=== PATIENT | male | born 1980 | race Caucasian/White ===

== ENCOUNTER → 2022-10-02 07:36 | Outpatient (BNVA) | payer SELFPAY | PROVIDERS: Visit Provider Physician Assistant ==

== ENCOUNTER 2022-11-03 21:31 | Emergency (ER) | payer OTHER, SELFPAY ==
--- NOTE | ~2022-11-03 | XR_ITS ---
EXAMINATION: XR ELBOW, LEFT CLINICAL INFORMATION: Left elbow pain. COMPARISON: None available. TECHNIQUE: AP, lateral, and oblique views of the left elbow. FINDINGS: No fracture or joint effusion. Alignment is anatomic. Joint spaces are maintained. No soft tissue calcifications. Mild soft tissue swelling at the antecubital fossa. XR/XR elbow LT min 3V IMPRESSION: Mild soft tissue swelling at the antecubital fossa. No acute osseous findings.
[2022-11-03 21:46] VITALS: BP 143/84; PULSE 105; RESP 18; TEMP 37.1; O2SAT 96; BMI 30.7
[2022-11-03] MEDS: Acetaminophen 325 MG TABLET 975 MG PO (23:03)
--- NOTE | 2022-11-03 23:04 | PC.NURSE ---
pt medicated for left am pain call pacheco within reach
[2022-11-03 23:58] VITALS: BP 102/53; PULSE 85; RESP 16; TEMP 36.9; O2SAT 95
--- NOTE | 2022-11-04 00:16 | ED.EXTPRO ---
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 heard a pop in the left elbow bleeding or pain at the medial aspect of elbow with swelling increases on flexion of the left elbow no other injury Related Data Previous Rx's Medication Instructions Recorded ibuprofen 600 mg tablet 600 mg PO Q6H PRN fever or pain 11/04/22 #30 tabs Allergies Allergy/AdvReac Type Severity Reaction Status Date / Time Penicillins Allergy Rash Verified 11/03/22 21:46 Review of Systems Review of Systems: Yes all other systems are reviewed and are negative PMFSH Social History Social History Advance Directives: No Advance Directives Information Provided: No Physical Exam Vital Signs: Vital Signs: Last Vital Signs Temp 98.4 F 11/03/22 23:58 Pulse 85 11/03/22 23:58 Resp 16 11/03/22 23:58 BP 102/53 L 11/03/22 23:58 Pulse Ox 95 11/03/22 23:58 O2 Del Method Room Air 11/03/22 23:58 BMI result Body Mass Index 30.7 Extrem: Shoulder/upper arm images: 1. Tenderness at the radial tuberosity increases on pronation with soft tissue swelling negative hook sign and biceps squeeze test Medications Administered Discontinued Medications Generic Name Dose Route Start Last Admin Trade Name Freq PRN Reason Stop Dose Admin Acetaminophen 975 mg 11/03/22 22:59 11/03/22 23:03 Acetaminophen 325 Mg Tablet PO 11/03/22 23:00 975 mg ONCE ONE Administration Ibuprofen 600 mg 11/04/22 00:20 11/04/22 00:40 Ibuprofen 600 Mg Tablet PO 11/04/22 00:21 Not Given ONCE ONE Medical Decision Making Medical Decision Making [facility] Narrative: Patient clinically with left partial distal biceps tendon rupture sling was given to the patient will see Dr. Hdz in a.m. x-ray negative for acute fracture Discharge Plan Discharge Clinical Impression: Rupture of distal biceps tendon Patient Disposition: Home, Self-Care Instructions: Tendon Rupture (ED) Additional Instructions: Wear the sling Rest to the left arm Ibuprofen for pain Follow-up with orthopedic for further management for biceps tendon rupture Prescriptions: New ibuprofen 600 mg tablet 600 mg PO Q6H PRN (Reason: fever or pain) Qty: 30 0RF Referrals: Tomy Hdz MD [Physician] - 2 days Stand Alone Forms: Work/School Release Interventions: ED Discharge Assessment Last Done: 11/04/22 00:44 Discharge Date/Time: 11/04/22 00:45
--- NOTE | 2022-11-04 00:44 | PC.NURSE ---
process control tech at bedside for sling. 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
== END 2022-11-04 00:45 | disposition home or self-care (01) ==
PROVIDERS: Emergency Provider Internal Medicine; PCP Physician Assistant
DX: S46.212A Strain of muscle, fascia and tendon of other parts of biceps, left arm, initial encounter (principal); M25.522 Pain in left elbow; X58.XXXA Exposure to other specified factors, initial encounter; Y93.9 Activity, unspecified; Y92.9 Unspecified place or not applicable; Y99.0 Civilian activity done for income or pay
CPT/HCPCS: 73080; 99283

== ENCOUNTER 2022-11-04 15:02 | Outpatient (AMB) | payer OTHER, SELFPAY ==
[2022-11-04 15:07] VITALS: BMI 30.7
--- NOTE | 2022-11-04 15:07 | MHC.OFFVIS ---
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 Patient reports he was pulling the hose suddenly he heard a pop in the left elbow. He states having numbness and a burning sensation on the bicep and it moves down his arm. 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 He had pain was unable to continue. He presents today with continued pain and knee antecubital fossa of the left arm. He comes in wearing a sling. He is right-hand dominant. 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 Review of Systems Const All systems reviewed & are unremarkable except as noted in HPI and below Physical Exam Vital Signs: BMI result Body Mass Index 30.7 Const General: cooperative, healthy appearing, no acute distress and well groomed Orientation/consciousness: oriented to person and oriented to place HEENT Head: Yes normal to inspection, Yes normocephalic and Yes atraumatic Eyes General: appearance normal, both eyes and all related structures Alignment and Position: alignment normal Conjunctivae: conjunctivae normal EOM: EOMs intact bilaterally Neck Neck: Yes normal visual inspection and Yes trachea midline Resp Other: No rerpiratory distress Effort & Inspection: normal respiratory effort and able to speak in complete sentences Cardio Other: Palpable radial pulse with no appreciable rythmic abnormalities GI Other: No abdominal distension Back/Spine/Pelvis Cervical Spine: normal cervical lordosis and cervical ROM normal Skin General skin exam: no rashes or lesions noted Neuro General: oriented to person, oriented to place and gait normal Extrem Other: Left arm with a positive hook test and biceps retraction. 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 I recommend operative fixation. I discussed the risks benefits and alternatives including but not limited to the risk of pain, infection, stiffness, need for further surgery as well as potential medical complications. He expressed understanding and we will proceed forward accordingly. Coding Level of Care Code New Pt Level 4 (11012) Diagnoses Rupture of left distal biceps tendon S46.212A
== END 2022-11-04 15:29 | disposition home or self-care (01) ==
PROVIDERS: PCP Physician Assistant; Visit Provider Orthopaedic Surgery
DX: S46.212A Strain of muscle, fascia and tendon of other parts of biceps, left arm, initial encounter (principal)
CPT/HCPCS: 99204

== ENCOUNTER → 2022-11-04 15:02 | Outpatient (BNVA) | payer OTHER, SELFPAY | PROVIDERS: PCP Physician Assistant; Visit Provider Orthopaedic Surgery ==

== ENCOUNTER 2022-11-08 09:58 | Day surgery (SDC) | payer OTHER, SELFPAY ==
--- NOTE | 2022-11-07 09:17 | HO.ANESPROP2 ---
Documented by User: Veronica Parker NP 11/07/22 09:18 HPI - Anesthesia Eval Consult details Narrative: 42yo M for Left Bicep Tendon Repair - Distal PMFSH Active Problems Active Problems: All Active Problems (Updated 11/05/22 @ 07:30 by Tomy Hdz MD) Rupture of left distal biceps tendon (Acute) Past Medical History Medical History (Updated 11/08/22 @ 10:12 by Lu Goode) HTN (hypertension) Surgical History Surgical History (Updated 11/08/22 @ 10:07 by Lu Goode) History of placement of ear tubes H/O foot surgery H/O shoulder surgery Social History Social History (Updated 11/04/22 @ 15:13 by Pat Azevedo) Patient Tobacco Use Status: Never used Tobacco 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 Meds Allergies Allergy/AdvReac Type Severity Reaction Status Date / Time Penicillins Allergy Unknown Rash Verified 11/08/22 10:05 Home Medications Medication Instructions Recorded Confirmed Last Taken Type lisinopril 5 mg tablet 5 mg PO DAILY 11/04/22 11/08/22 11/08/22 History Exam Exam Date and Time: November 07, [id number] Assessment and Plan Assessment Anesthesia Assessment: Chart Reviewed Documented by User: Cosmo Gan MD 11/10/22 20:41 PMFSH Past Medical History Medical History (Updated 11/08/22 @ 10:12 by Lu Goode) HTN (hypertension) Family History Family history of problems with anesthesia: No Surgical History Surgical History (Updated 11/08/22 @ 10:07 by Lu Goode) History of placement of ear tubes H/O foot surgery H/O shoulder surgery History of Problems with Anesthesia: No Social History Social History (Updated 11/04/22 @ 15:13 by Pat Azevedo) Patient Tobacco Use Status: Never used Tobacco 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 Meds Allergies Allergy/AdvReac Type Severity Reaction Status Date / Time Penicillins Allergy Unknown Rash Verified 11/08/22 10:05 Home Medications Medication Instructions Recorded Confirmed Last Taken Type lisinopril 5 mg tablet 5 mg PO DAILY 11/04/22 11/08/22 11/08/22 History Exam Airway Mallampati Class: III Neck ROM: Full Loose/Missing/Broken Teeth: Yes Assessment and Plan Assessment Anesthesia Assessment: Anesthesia Plan Discussed Final Anesthetic Review Family History of Problems with Anesthesia: No History of Problems with Anesthesia: No NPO: Yes ASA Class: II Final Preanesthetic Review: Meds/Allgs Chart Reviewed, Consent Obtained/Reviewed and Anes Risks/Benef Reviewed Patient Risk: Intermediate Procedure Risk: Intermediate Anesthetic Plan Anesthetic Plan: GA, Regional Block and Agree w/ Assess. and Plan Disposition: Standard PACU
[2022-11-08] VITALS (11 sets, daily range): BP systolic 110–143; BP diastolic 60–90; PULSE 76–87; RESP 15–17; TEMP 36.2–36.7; O2SAT 92–97; BMI 30.6
--- NOTE | ~2022-11-08 | FL_ITS ---
EXAMINATION: XR FLUOROSCOPY WITH IMAGES CLINICAL INFORMATION: Distal biceps repair, left. COMPARISON: None available. TECHNIQUE: Fluoroscopy Supervised By: Dr. Tomy Hdz. Fluoroscopy Time: 16.28 seconds. Cumulative Dose: 0.5165 mGy. DAP: 0.0312 Gycm2. Images: 2. FINDINGS: Images demonstrate a button or anchor projecting over the proximal radial shaft/radial tuberosity for biceps tendon repair. FL/FL guidance in OR IMPRESSION: Fluoroscopy guidance for biceps tendon repair.
[2022-11-08] MEDS: Lactated Ringers 1,000 ML 100 ML IVCONT (10:56)
--- NOTE | 2022-11-08 13:09 | PM.OP ---
Brief Operative Note Date of Service: 11/08/22 Pre-op diagnosis: Left distal biceps rupture Post-op diagnosis: same Procedure: Left distal bicep repair Implants: Arthrex suture button and 7x 10 mm interference screw Surgeon: Tomy Hdz MD Anesthesia: GETA and regional Was an Ammonia Refrigeration Technician used for this Procedure?: No Estimated blood loss (mL): 10 Tourniquet time (min): 37 IV fluids (mL): 750 Pathology: none sent Condition: stable Disposition: PACU
[2022-11-08] MEDS: oxyCODONE HCl Immed Release 5 MG TABLET PO (13:15)
--- NOTE | 2022-11-12 10:14 | W.PM.OPN ---
Operative Note Operative Note Date of Service: 11/08/22 Narrative: Date of Service: 11/08/22 Pre-op diagnosis: Left distal biceps rupture Post-op diagnosis: same Procedure: Left distal bicep repair Implants: Arthrex suture button and 7x 10 mm interference screw Surgeon: Tomy Hdz MD Anesthesia: GETA and regional Was an Color Finisher used for this Procedure?: No Estimated blood loss (mL): 10 Tourniquet time (min): 37 IV fluids (mL): 750 Pathology: none sent Condition: stable Disposition: PACU Patient was brought to the operating room and placed supine on the surgical table. He was prepped and draped in standard sterile fashion and a time out was called to identify proper site, proper procedure and IV antibiotics per weight were administered. The tourniquet was insufflated to 250 mm Hg I began by localizing the radial tuberosity. I then made a standard transverse incision at this level and bluntly dissected down. The biceps sheath was easily encountered retracted into the arm. This was identified and clamped and brought out to length. I cleaned that tendon up and whipstitched and standard locking Krackow fashion with FiberWire from the Arthrex distal biceps tendon repair kit. I then bluntly dissected down to the radial tuberosity. A Beef pin was drilled at the site of attachment bicortically. This was confirmed with fluoro. I then over reamed with a 7 mm Reamer through the 1st cortex only. I then attached the suture button and dunked this through the 2nd cortex and pulled the biceps tendon into the attachment site. I then placed the 7 mm interference screw and tied the FiberWire over this. I took the elbow through range of motion and was satisfied with the position of the repair and the stability of the repair. He had full range of motion with full supination and pronation. Final fluoro confirmed the button on the dorsal cortex. the tourniquet was let down. There was no brisk bleeding. A layered closure was performed with absorbable suture skin glue and Steri-Strips. Patient was placed into a sterile dressing and a simple sling. He was extubated and brought to the recovery room in stable condition. There were no known complications. He will initiate range of motion in the next 5-7 days with no resistance for 6 weeks.
== END 2022-11-08 15:45 | disposition home or self-care (01) ==
PROVIDERS: PCP Physician Assistant; Visit Provider Orthopaedic Surgery
PROC: (CPT 24341; principal; 2022-11-08 11:30)
DX: S46.212A Strain of muscle, fascia and tendon of other parts of biceps, left arm, initial encounter (principal); X50.0XXA Overexertion from strenuous movement or load, initial encounter; Y92.69 Other specified industrial and construction area as the place of occurrence of the external cause; Y93.89 Activity, other specified; Y99.0 Civilian activity done for income or pay; Y99.8 Other external cause status; I10 Essential (primary) hypertension; Z88.0 Allergy status to penicillin; Z79.899 Other long term (current) drug therapy
CPT/HCPCS: 24341; C1713; J0131; J0690; J1170; J2250; J2550; J2795; J3010

== ENCOUNTER → 2022-11-08 09:58 | Outpatient (BNV) | payer OTHER, SELFPAY | PROVIDERS: PCP Physician Assistant; Visit Provider Orthopaedic Surgery | DX: S46.211A Strain of muscle, fascia and tendon of other parts of biceps, right arm, initial encounter (principal) | CPT/HCPCS: 24342 ==

== ENCOUNTER 2022-11-15 10:25 | Outpatient (AMB) | payer OTHER, SELFPAY ==
--- NOTE | 2022-11-15 10:34 | MHC.OFFVIS ---
Intake Vital Signs 11/15/22 10:37 Height 5 ft 11 in Weight 219 lb BMI 30.5 Intake Visit Reasons: PO LT Distal Bic.Ten repair 11/08/22NE/Confirmed Intake Note: Efrain 42 yr ld male presents today for his P/O visit for left distal bicep tendon repair from 11/08/22. States he has is doing well and has tolerable pain. Allergies Penicillins Allergy (Unknown, Verified 11/15/22 10:36) Rash HPI PO LT Distal Bic.Ten repair 11/08/22NE/Confirmed HPI Details 42-year-old male who presents in the office today 1 week status post left distal bicep repair, which was performed on 11/08/[address] Hdz. The patient reports he is doing well with tolerable pain. 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 No signs of infection. No surrounding erythema or drainage. Able to reach full extension and flexion. Able to slightly pronate and supinate with discomfort. NVI. Assessment & Plan Assessment & Plan (1) Rupture of left distal biceps tendon: Comment: Left distal bicep repair, 11/08/2022 Dr. Tomy Hdz Code(s): S46.212A - Strain of muscle, fascia and tendon of other parts of biceps, left arm, initial encounter Qualifiers: Encounter type: subsequent encounter Qualified Code(s): S46.212D - Strain of muscle, fascia and tendon of other parts of biceps, left arm, subsequent encounter Plan Mr. Donald is a 42-year-old male who presents in the office today 1 week status post left distal bicep repair, which was performed on 11/08/[address] Hdz. The patient reports he is doing well with tolerable pain. 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 The patient will be referred for out patient physical therapy. He will continue with no lifting, pushing, or pulling of the left upper extremity. Out of work until f/u. Follow up will be in 4 weeks, or sooner if needed. Orders: Orders PT Evaluation and Treatment Today S46.212A - Strain of muscle, fascia and tendon of other parts of biceps, left arm, initial encounter Patient Instructions: Scribed for Madalyn Cooper PA-C by Daisha Salcedo medical diagnostic radiographer, on 11/15/2022 at 10:28 am, EST. Coding Level of Care Code Global (34085) Diagnoses Rupture of left distal biceps tendon, subsequent encounter S46.212D Encounter type: subsequent encounter
[2022-11-15 10:37] VITALS: BMI 30.5
== END 2022-11-15 10:55 | disposition home or self-care (01) ==
PROVIDERS: PCP Physician Assistant; Visit Provider Physician Assistant
DX: S46.212D Strain of muscle, fascia and tendon of other parts of biceps, left arm, subsequent encounter (principal)
CPT/HCPCS: 99024

== ENCOUNTER → 2022-11-15 10:25 | Outpatient (BNVA) | payer OTHER, SELFPAY | PROVIDERS: PCP Physician Assistant; Visit Provider Physician Assistant ==

== ENCOUNTER 2022-12-13 11:17 | Outpatient (AMB) | payer OTHER, SELFPAY ==
--- NOTE | 2022-12-13 11:25 | MHC.OFFVIS ---
Intake Vital Signs 12/13/22 11:29 Handedness Right Intake Visit Reasons: PO LT Distal Bic.Ten repair 11/08/22NE Intake Note: Efrain is a 42 year old right hand dominant male who presents today in a sling for his P/O visit for left distal bicep tendon repair 11/08/22 NE. Patient states he is doing well, some achenes here and there. He reports that PT is going well and is showing some improvements. Allergies Penicillins Allergy (Unknown, Verified 11/15/22 10:36) Rash HPI PO LT Distal Bic.Ten repair 11/08/22NE HPI Details 42-year-old right hand dominant male who presents in the office today 1 month status post left distal bicep repair, which was performed on 11/08/[address] Hdz. The patient reports he is doing well with some achiness intermittently. He confirms participating in physical therapy and states it is going well. He confirms improvement in the left shoulder. 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 Surgical incision is well approximated and healing. No signs of infection. NVI. Assessment & Plan Assessment & Plan (1) Rupture of left distal biceps tendon: Comment: Left distal bicep repair, 11/08/2022 Dr. Tomy Hdz Code(s): S46.212A - Strain of muscle, fascia and tendon of other parts of biceps, left arm, initial encounter Qualifiers: Encounter type: subsequent encounter Qualified Code(s): S46.212D - Strain of muscle, fascia and tendon of other parts of biceps, left arm, subsequent encounter Plan Mr. Donald is a 42-year-old right hand dominant male who presents in the office today 1 month status post left distal bicep repair, which was performed on 11/08/[address] Hdz. The patient reports he is doing well with some achiness intermittently. He confirms participating in physical therapy and states it is going well. He confirms improvement in the left shoulder. The patient will continue to work with physical therapy. He has not been seen by Dr. Hdz since surgery therefore his follow up will be with him. He will remain out of work until follow up. Follow up in [address] Hdz, or sooner if needed. Patient Instructions: Scribed for Madalyn Cooper PA-C by Daisha Salcedo medical administrative technician, on 12/13/2022 at 11:19 am, EST. Coding Level of Care Code Global (91705) Diagnoses Rupture of left distal biceps tendon, subsequent encounter S46.212D Encounter type: subsequent encounter
== END 2022-12-13 12:01 | disposition home or self-care (01) ==
PROVIDERS: PCP Physician Assistant; Visit Provider Physician Assistant
DX: S46.212D Strain of muscle, fascia and tendon of other parts of biceps, left arm, subsequent encounter (principal)
CPT/HCPCS: 99024

== ENCOUNTER → 2022-12-13 11:17 | Outpatient (BNVA) | payer OTHER, SELFPAY | PROVIDERS: PCP Physician Assistant; Visit Provider Physician Assistant ==

== ENCOUNTER 2023-01-24 09:29 | Outpatient (AMB) | payer OTHER, SELFPAY ==
--- NOTE | 2023-01-24 09:31 | A.OFFVIS_ITS ---
Intake Vital Signs 01/24/23 09:34 Height 5 ft 11 in Weight 219 lb BMI 30.5 Intake Visit Reasons: PO LT Distal Bic.Ten repair 11/08/22NE Intake Note: Efrain is a 42 year old right hand dominant male who presents today for a post operative visit s/p left distal bicep tendon repair 11/08/22 NE. Patient remains out of work at this time. Patient reports that he is doing well, he is working with PT and it is going well. 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 Allergies Penicillins Allergy (Unknown, Verified 11/15/22 10:36) Rash HPI PO LT Distal Bic.Ten repair 11/08/22NE HPI Details Efrain is a 42 year old man who presents ~10 weeks S/P left distal biceps tendon repair.. He says he is doing well and denies any pain. He has been attending PT, which he finds helpful. He would like to discuss work restrictions. 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 Review of Systems Const All systems reviewed & are unremarkable except as noted in HPI and below Physical Exam Vital Signs: BMI result Body Mass Index 30.5 Const General: no acute distress, alert and awake Orientation/consciousness: patient oriented x3 HEENT Head: Yes normocephalic and Yes atraumatic Eyes EOM: EOMs intact bilaterally Resp Effort & Inspection: normal respiratory effort and able to speak in complete sentences Cardio Jugular venous distension: no JVD Skin General skin exam: turgor normal Rashes: no rashes Neuro General: patient oriented x3 Extrem Other: Left Arm: Well-healed inc full rom 5/5 with resisted supination Psych Appearance: grossly normal Affect: normal affect Attitude: cooperative Assessment & Plan Assessment & Plan (1) Rupture of left distal biceps tendon: Comment: Left distal bicep repair, 11/08/2022 Dr. Tomy Hdz Code(s): S46.212A - Strain of muscle, fascia and tendon of other parts of biceps, left arm, initial encounter Qualifiers: Encounter type: subsequent encounter Qualified Code(s): S46.212D - Strain of muscle, fascia and tendon of other parts of biceps, left arm, subsequent encounter Plan: This is a 42 year old man S/P left distal biceps tendon repair, DOS: 11/08/22. He is doing well, within expectation, and denies any pain. He continues to work with PT on his function & ROM, and is concerned about returning to work as a contribution solicitor as they do not have light duty for him. No work. May begin PT with progressive strengthening. f/u 6 weeks Orders: Orders PT Evaluation and Treatment Today S46.212A - Strain of muscle, fascia and tendon of other parts of biceps, left arm, initial encounter Coding Level of Care Code Global (59117) Diagnoses Rupture of left distal biceps tendon, subsequent encounter S46.212D Encounter type: subsequent encounter
[2023-01-24 09:34] VITALS: BMI 30.5
== END 2023-01-24 09:52 | disposition home or self-care (01) ==
PROVIDERS: PCP Physician Assistant; Visit Provider Orthopaedic Surgery
DX: S46.212D Strain of muscle, fascia and tendon of other parts of biceps, left arm, subsequent encounter (principal)
CPT/HCPCS: 99024

== ENCOUNTER → 2023-01-24 09:29 | Outpatient (BNVA) | payer OTHER, SELFPAY | PROVIDERS: PCP Physician Assistant; Visit Provider Orthopaedic Surgery | DX: S46.212D Strain of muscle, fascia and tendon of other parts of biceps, left arm, subsequent encounter (principal) | CPT/HCPCS: 99212 ==

== ENCOUNTER 2023-03-07 10:56 | Outpatient (AMB) | payer OTHER, SELFPAY ==
--- NOTE | 2023-03-07 11:04 | A.OFFVIS_ITS ---
Intake Vital Signs 03/07/23 11:09 Height 5 ft 11 in Weight 219 lb BMI 30.5 Intake Visit Reasons: OV-LT Distal Bic.Ten repair 11/08/22NE Intake Note: Efrain a 42 year old right hand dominant male presents today for a post operative visit s/p left distal bicep tendon repair 11/08/22 NE. Patient reports that he is doing well, however today while working with PT he felt an increase in pain/discomfort. Allergies Penicillins Allergy (Unknown, Verified 03/07/23 11:09) Rash HPI OV-LT Distal Bic.Ten repair 11/08/22NE HPI Details Efrain is a 42 year old man who presents ~4 months S/P left distal biceps tendon repair. He says he is doing well and continues to attend PT, which he finds helpful, but he has noticed an increase in pain michelle. after last few PT sessions in which he has been working against resistance. 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 Review of Systems Const All systems reviewed & are unremarkable except as noted in HPI and below Physical Exam Vital Signs: BMI result Body Mass Index 30.5 Const General: no acute distress, alert and awake Orientation/consciousness: patient oriented x3 HEENT Head: Yes normocephalic and Yes atraumatic Eyes EOM: EOMs intact bilaterally Resp Effort & Inspection: normal respiratory effort and able to speak in complete sentences Cardio Jugular venous distension: no JVD Skin General skin exam: turgor normal Rashes: no rashes Neuro General: patient oriented x3 Extrem Other: full rom left elbow biceps palpable Discomfort with deep palpation and with resisted supination Psych Appearance: grossly normal Affect: normal affect Attitude: cooperative Assessment & Plan Assessment & Plan (1) Rupture of left distal biceps tendon: Comment: Left distal bicep repair, 11/08/2022 Dr. 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 f/u 8 weeks at which time he will hopefully feel that he is able to rtw. Plan Scribed for Tomy Hdz MD by Kelvin Crane, medical social consultant, on 03/07/23 at 11:10 AM, EST. Coding Level of Care Code Est Pt Level 3 (79242) Diagnoses Rupture of left distal biceps tendon, subsequent encounter S46.212D Encounter type: subsequent encounter
[2023-03-07 11:09] VITALS: BMI 30.5
== END 2023-03-07 11:36 | disposition home or self-care (01) ==
PROVIDERS: PCP Physician Assistant; Visit Provider Orthopaedic Surgery
DX: S46.212D Strain of muscle, fascia and tendon of other parts of biceps, left arm, subsequent encounter (principal)
CPT/HCPCS: 99213

== ENCOUNTER → 2023-03-07 10:56 | Outpatient (BNVA) | payer OTHER, SELFPAY | PROVIDERS: PCP Physician Assistant; Visit Provider Orthopaedic Surgery | DX: S46.212D Strain of muscle, fascia and tendon of other parts of biceps, left arm, subsequent encounter (principal) | CPT/HCPCS: 99212 ==

== ENCOUNTER 2023-03-28 10:29 | Outpatient (AMB) | payer OTHER, SELFPAY ==
--- NOTE | 2023-03-28 10:26 | A.OFFVIS_ITS ---
Intake Intake Visit Reasons: OV-LT Distal Bic.Ten repair 11/08/22NE Intake Note: Efrain a 42 year old right hand dominant male presents today for a post operative visit s/p left distal bicep tendon repair 11/08/22 NE. 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 Patient reports that he is doing well. Allergies Penicillins Allergy (Unknown, Verified 03/28/23 10:26) Rash HPI OV-LT Distal Bic.Ten repair 11/08/22NE HPI Details Efrain is a 42 year old man who presents ~5 months S/P left distal biceps tendon repair. He says he is doing well and continues to attend PT, which he finds helpful, but he has noticed an increase in pain michelle. after working against resistance. 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 Review of Systems Const All systems reviewed & are unremarkable except as noted in HPI and below Physical Exam Const General: no acute distress, alert and awake Orientation/consciousness: patient oriented x3 HEENT Head: Yes normocephalic and Yes atraumatic Eyes EOM: EOMs intact bilaterally Resp Effort & Inspection: normal respiratory effort and able to speak in complete sentences Cardio Jugular venous distension: no JVD Skin General skin exam: turgor normal Rashes: no rashes Neuro General: patient oriented x3 Extrem Other: Left distal biceps inc c/d/i Intact biceps at insertion Mild pain over lateral forearm. Hard to reproduce. Psych Appearance: grossly normal Affect: normal affect Attitude: cooperative Assessment & Plan Assessment & Plan (1) Rupture of left distal biceps tendon: Comment: Left distal bicep repair, 11/08/2022 Dr. Tomy Hdz Code(s): S46.212A - Strain of muscle, fascia and tendon of other parts of biceps, left arm, initial encounter Qualifiers: Encounter type: subsequent encounter Qualified Code(s): S46.212D - Strain of muscle, fascia and tendon of other parts of biceps, left arm, subsequent encounter Plan: 4 1/2 months s/p left biceps repair. Still some concerns with pain after resistance activities. May progress strengthenoing as tolerated. Continue current work restrictions. f/u 4 weeks Plan Prepared for Tomy Hdz MD by Kelvin Crane, medical administrative technician, on 03/28/23 at 10:32 AM, EST. Coding Level of Care Code Est Pt Level 3 (41832) Diagnoses Rupture of left distal biceps tendon, subsequent encounter S46.212D Encounter type: subsequent encounter
== END 2023-03-28 10:53 | disposition home or self-care (01) ==
PROVIDERS: PCP Physician Assistant; Visit Provider Orthopaedic Surgery
DX: S46.212D Strain of muscle, fascia and tendon of other parts of biceps, left arm, subsequent encounter (principal); Z04.2 Encounter for examination and observation following work accident
CPT/HCPCS: 99213

== ENCOUNTER → 2023-03-28 10:29 | Outpatient (BNVA) | payer OTHER, SELFPAY | PROVIDERS: PCP Physician Assistant; Visit Provider Orthopaedic Surgery | DX: S46.212D Strain of muscle, fascia and tendon of other parts of biceps, left arm, subsequent encounter (principal) | CPT/HCPCS: 99212 ==

== ENCOUNTER 2023-04-28 09:28 | Outpatient (AMB) | payer OTHER, SELFPAY ==
[2023-04-28 09:29] VITALS: BMI 30.5
--- NOTE | 2023-04-28 09:29 | MHC.OFFVIS ---
Intake Vital Signs 04/28/23 09:29 Height 5 ft 11 in Weight 219 lb BMI 30.5 Intake Visit Reasons: OV-LT Distal Bic.Ten repair 11/08/22NE Intake Note: Efrain a 42 year old right hand dominant male presents today for a post operative visit s/p left distal bicep tendon repair 11/08/22 NE. 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 Patient reports that he has no concerns at this time, he is ready to get back to work Allergies Penicillins Allergy (Unknown, Verified 03/28/23 10:26) Rash HPI OV-LT Distal Bic.Ten repair 11/08/22NE HPI Details Efrain is a 42 year old man who presents ~5 1/2 months S/P left distal biceps tendon repair. He says he is doing well and continues to attend PT, which he finds helpful, and has started to work on increasing his strength. 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 He would like to discuss his work restrictions & RTW status. He feels he is able to return to full duty. 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 Resp Other: No audible wheezing Effort & Inspection: normal respiratory effort and able to speak in complete sentences Cardio Other: Radial pulse palpable with no rythmic abnormalities Jugular venous distension: no JVD Back/Spine/Pelvis Cervical Spine: normal cervical lordosis Skin General skin exam: turgor normal Rashes: no rashes Neuro General: patient oriented x3 Extrem Other: FUll ROM No pain with resisted supination Well-healed incision Psych Appearance: grossly normal Mental Status: mental status grossly normal Speech and movement: Normal speech and movement present Affect: normal affect Attitude: cooperative Assessment & Plan Assessment & Plan (1) Rupture of left distal biceps tendon: Comment: Left distal bicep repair, 11/08/2022 Dr. Tomy Hdz Code(s): S46.212A - Strain of muscle, fascia and tendon of other parts of biceps, left arm, initial encounter Qualifiers: Encounter type: subsequent encounter Qualified Code(s): S46.212D - Strain of muscle, fascia and tendon of other parts of biceps, left arm, subsequent encounter Plan: Efrain is doing very well. He has a teacher kindergarten and slightly concerned about returning to full duty as he has not tested his arm yet. I recommend he return to PT and he may engage in activity as tolerated without restrictions. There is no evidence of problem and he is healed this well. I anticipate a return to work without restriction in 2 weeks. Plan Prepared for Tomy Hdz MD by Kelvin Crane, medical laboratory manager, on 04/28/23 at 9:34 AM, EST. Coding Level of Care Code Est Pt Level 3 (87978) Diagnoses Rupture of left distal biceps tendon, subsequent encounter S46.212D Encounter type: subsequent encounter
== END 2023-04-28 10:00 | disposition home or self-care (01) ==
PROVIDERS: PCP Physician Assistant; Visit Provider Orthopaedic Surgery
DX: S46.212D Strain of muscle, fascia and tendon of other parts of biceps, left arm, subsequent encounter (principal)
CPT/HCPCS: 99213

== ENCOUNTER → 2023-04-28 09:28 | Outpatient (BNVA) | payer OTHER, SELFPAY | PROVIDERS: PCP Physician Assistant; Visit Provider Orthopaedic Surgery | DX: S46.212D Strain of muscle, fascia and tendon of other parts of biceps, left arm, subsequent encounter (principal) | CPT/HCPCS: 99212 ==

== ENCOUNTER 2023-04-28 10:00 | Outpatient (RCR) | payer OTHER, SELFPAY ==
[2022-11-28 10:05] VITALS: BP 115/64; PULSE 82
--- NOTE | 2022-11-28 11:02 | MHC.PT.EP ---
[facility] [place] Office [place] Office [place] Office [address] Gonzalo Peraza [address] [facility] [phone] F: [phone] F: [phone] F: [phone] F: [phone] Physical Therapy Plan of Care Date of Evaluation: 11/28/22 Date of Surgery: 11/08/22 Diagnosis: Strain of muscle, fascia and tendon of other parts of biceps, L arm, initial encounter Rupture of L distal bicep tendon s/p L bicep repair Assessment: Efrain is a 42 year old male who is referred to PT for Strain of muscle, fascia and tendon of other parts of biceps, L arm, initial encounter, Rupture of L distal bicep tendon . He is 20 days post op. He injured his bicep at work while pulling a fire hose. On PT examination he presented with TTP over bicep belly, medial aspect of arm, distal bicep tendon, decreased R shoulder ROM, decreased L elbow ROM and strength, and altered posture. 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 He lives with his family. He is independent with self care activities but his does all IADLS. He also helps his care for 3 young children. He enjoys playing basket ball, soft ball and going to the gym. He would benefit from skilled PT to address the aforementioned impairments and improve tolerance to functional activities. Frequency and Duration: The patient will be seen 2/week for 14 weeks Short Term Goals: 1. Pt will have 50% decrease in pain which will enable him to sleep through the night in 2 weeks 2. Pt will demonstrate protocol appropriate elbow ROM in 4 weeks. Locomotive Switch Operator Goals: 1. Pt will demonstrate an increase in bicep strength by 1 grade which will enable him to use his L UE for cleaning, cooking grocery without pain in 8 weeks. 2. Pt will be able to move his elbow through all planes of motion and have strength WNL which will enable him to return to playing basket ball, soft ball and exercising in the gym in 11 weeks. 3. Pt will return to PLOF and full duty work activities in 14 weeks. Treatment Plan: Modalities to reduce pain, spasms and effusion. Manual therapy to restore motion and function. Therapeutic exercise to improve strength and flexibility. Neuromuscular re-education for posture and balance. Therapeutic activities to return to functional activities of daily living. Electronically signed by: Kylee Figueredo PT DPT Please sign and return to therapist. Thank you for your referral.
--- NOTE | 2023-05-15 11:26 | MHC.PT.DC ---
[facility] [place] Office [place] Office [place] Office [address] Gonzalo Peraza [address] [phone] F: [phone] F: [phone] F: [phone] F: [phone] Physical Therapy Discharge Report Diagnosis: Strain of muscle, fascia and tendon of other parts of biceps, L arm, initial encounter Rupture of L distal bicep tendon s/p L bicep repair Date of Surgery: 11/08/22 Date of Evaluation: 11/28/22 Date of Discharge: 05/15/23 Treatments to Date: 26 Cancellations to Date: 1 No Shows to Date: 0 Discharge Status: Achieved Goals Improved Function Independent with HEP Discharge Summary: Efrain completed 26 PT visits. He has made significant improvements and has achieved all goals set for him. He is therefore being d/c from PT. Electronically signed by: Kylee Figueredo PT DPT Please sign and return to therapist. Thank you for your referral.
== END 2023-05-15 11:26 | disposition home or self-care (01) ==
LOC: HO.PT 10:00
PROVIDERS: PCP Physician Assistant; Visit Provider Physician Assistant
DX: S46.212A Strain of muscle, fascia and tendon of other parts of biceps, left arm, initial encounter (principal)
CPT/HCPCS: 97110; 97140; 97161; 97530

== ENCOUNTER 2023-05-09 12:32 | Outpatient (AMB) | payer OTHER, SELFPAY ==
--- NOTE | 2023-05-09 12:32 | MHC.OFFVIS ---
Intake Vital Signs 05/09/23 12:33 Height 5 ft 11 in Weight 219 lb BMI 30.5 Intake Visit Reasons: tele- LT Distal Bic.Ten repair 11/08/22NE Intake Note: Efrain is a 42 year old male who presents today VIA telephone for a follow up of his LT Distal Biceps Tendon repair 11/08/22. At his last visit he was given instructions to continue physical therapy, resume actives as tolerated without restrictions and anticipate release to work at this appointment. Allergies Penicillins Allergy (Unknown, Verified 05/09/23 12:33) Rash HPI tele- LT Distal Bic.Ten repair 11/08/22NE HPI Details Efrain is a 42 year old male who presents today VIA telephone for a follow up of his LT Distal Biceps Tendon repair 11/08/22. At his last visit he was given instructions to continue physical therapy, resume actives as tolerated without restrictions and anticipate release to work at this appointment. He feels well and has no complaints. He would like to return to work without restrictions. 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 Tomy Hdz Code(s): S46.212A - Strain of muscle, fascia and tendon of other parts of biceps, left arm, initial encounter Qualifiers: Encounter type: subsequent encounter Qualified Code(s): S46.212D - Strain of muscle, fascia and tendon of other parts of biceps, left arm, subsequent encounter Plan: Efrain is doing well. He may return to work without restrictions Telehealth Telehealth Location of provider rendering services: practice address Location of patient: address on file Patient Identification confirmed using: Name, : Yes Telehealth method: voice only Patient verbally consented to treatment: Yes Patient verbally consented to billing insurance company: Yes Patient informed of any privacy concerns related to visit: Yes Minutes spent on Phone/Video with Pt.: 5 Coding Level of Care Code Est Pt Level 3 (30251) Diagnoses Rupture of left distal biceps tendon, subsequent encounter S46.212D Encounter type: subsequent encounter
[2023-05-09 12:33] VITALS: BMI 30.5
== END 2023-05-09 12:35 | disposition home or self-care (01) ==
LOC: HO.HOS 12:32
PROVIDERS: PCP Physician Assistant; Visit Provider Orthopaedic Surgery
DX: S46.212D Strain of muscle, fascia and tendon of other parts of biceps, left arm, subsequent encounter (principal)
CPT/HCPCS: 99441

== ENCOUNTER → 2023-05-09 12:32 | Outpatient (BNVA) | payer OTHER, SELFPAY | PROVIDERS: PCP Physician Assistant; Visit Provider Orthopaedic Surgery ==